=== PATIENT | male | born 1995 | race Caucasian/White ===

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

== ENCOUNTER → 2018-05-19 13:36 | Outpatient (CLI) | payer OTHER ==
[2016-11-22 12:43] VITALS: BMI 20.2
--- NOTE | 2018-05-21 14:40 | ST ---
PATIENT:YUE REYES MEDICAL RECORD: [id number] SEX: M LOCATION:[facility] ORDER #: ADMISSION DATE: 05/19/18 AGE OF PATIENT: 22 REFERRING PHYSICIAN: INTERPRETING PHYSICIAN: KAYCEE ARMSTRONG MD DATE OF SERVICE: 05/19/2018 PROCEDURE: Treadmill stress test. Baseline ECG is normal, exercise for 10 minutes on Juan protocol, maximum heart rate is 144 beats per minute, greater than 85% max predicted. No ECG change of ischemia. No symptoms of ischemia. Normal blood pressure response to exercise. No arrhythmias noted. Good exercise tolerance for age. TRANSINT:[id number] Voice Confirmation ID: [id number] DOCUMENT ID: [id number] KAYCEE ARMSTRONG MD at 1440 CC: [id number] DICTATION DATE: 05/20/18 1003 URBAN FORESTER: 05/20/18 1030 DEP CLI 05/19/18 [place] [id number] [place] [address]
--- NOTE | 2018-05-21 14:40 | EC ---
PATIENT:YUE REYES DATE OF SERVICE: 05/19/18 SEX: M MEDICAL RECORD: [id number] DATE OF : [birth year] [facility] AGE OF PATIENT: 22 ADMISSION DATE: 05/19/18 REFERRING PHYSICIAN: INTERPRETING PHYSICIAN: KAYCEE ARMSTRONG MD ECHOCARDIOGRAM REPORT ECHO CHARGES 4 ECHO COMPLETE Date: 05/19/18 CLINICAL DIAGNOSIS: HEART MURMUR ECHOCARDIOGRAPHIC MEASUREMENTS (adult normal given) AC root (d.<3.7cm) 4.2 cm LV Septum d (<1.2 cm> 1.1 cm Valve Excursion 2.0 cm LV Septum (systole) 1.5 cm Left Atria (s.<4.0cm> 3.9 cm LVPW d(<1.2cm) 1.1 cm RV (d.<2.3cm) 4.4 cm LVPW (sytole) 1.3 cm LV diastole(<5.6CM) 5.5 cm MV E-F(>70mm/sec) cm LV systole 3.5 cm LVOT Diameter 1.8 cm MV exc.(>10mm) 1.1 cm Est.ejection fraction (50-75%) % DOPPLER: LVIT cm/sec A 45.0 cm/sec E 109 cm/sec LA cm/sec RVSP 34 mmHg LVOT 118 cm/sec AOP1/2T m/s Asc. 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 Bond TAPE# PACS Pericardial Effusion N DATE OF SERVICE: 05/19/2018 Adequate 2-D echo, color flow and spectral Doppler, and M-mode. No LVH. LV internal dimensions are normal. Wall motion is normal. EF is greater than or equal to 55%. Aortic valve is tricuspid. No evidence of stenosis by Doppler interrogation. The left atrium is normal. Mitral valve shows no prolapse. Trace MR. Right-sided chamber is grossly normal. Trace TR. 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
== END | disposition home or self-care (01) ==
LOC: D.HCCARDIO 13:36
PROVIDERS: ATTEND Internal Medicine Interventional Cardiology
DX: R07.89 Other chest pain (principal); R01.1 Cardiac murmur, unspecified